=== PATIENT | male | born 1960 | race Caucasian/White ===

== ENCOUNTER → 2021-07-01 | Outpatient (CLI) | payer OTHER ==
[~2021-07-01] MED LIST: AVODART; AVODART0.5 MG PO; BACTRIM DS TAB1 EACH PO; DEPO-TESTO100 MG/1 M IM; ENBREL; ENBREL 25 MG KI25 M1 SC; FLOMAX; HYDROCODON-ACE1 EAC5 PO; HYDROCODONE-AP1 EAC6 PO; IBUPROFEN 800800 M1 PO; KEFLEX500 MG PO; NAPROSYN500 MG PO; NORCO 5-325 TA1 EACH PO; NORFLEX100 MG PO; PERCOCET 5-3251 EACH PO; TAMSULOSIN HCL0.4 M1 PO
== END ==
LOC: M.ULTRA 14:38
PROVIDERS: ATTEND Family Medicine
DX: M71.21 Synovial cyst of popliteal space [Baker], right knee (principal); R22.41 Localized swelling, mass and lump, right lower limb